=== PATIENT | female | born 1990 | race Hispanic/Latino ===

== ENCOUNTER 2021-12-29 09:36 | Inpatient (IN) | payer SELFPAY ==
[2021-12-29 10:20] LABS: #Basophils 0.1 thou/uL (0.0-0.2); #Eosinphils 0.2 thou/uL (0.0-0.7); #Lymphocytes 1.7 thou/uL (1.20-3.40); #Monocytes 1.2 thou/uL (0.11-0.59); #Neutrophils 15.3 thou/uL (1.40-6.50); %Basophils 0.4 % (0.0-1.0); %Eosinophils 1.2 % (0.0-10.0); %Lymphocytes 9.1 % (21.0-51.0); %Monocytes 6.3 % (0.0-10.0); %Neutrophils 82.9 % (42.0-75.0); Hemoglobin 14.2 g/dL (12.0-16.0); Mean Corpuscular Hemoglobin 30.6 pg (27.0-31.0); Mean Corpuscular Volume 92.7 fL (78.0-98.0); Mean Platelet Volume 7.3 fL (7.4-10.4); Platelet Count 352 thou/uL (130-400); Red Blood Cell (RBC) Count 4.64 mill/uL (4.20-5.40); White Blood Cell (WBC) Count 18.5 thou/uL (4.8-10.8)
[2021-12-29 10:36] LABS: INR-International Normal Ratio 1.1; Prothrombin Time 14.5 sec (12.0-14.7)
[2021-12-29 10:37] LABS: PTT 27.8 sec (22.9-36.1)
[2021-12-29 10:38] LABS: ALT (SGPT) 17 U/L (8-55); AST (SGOT) 23 U/L (5-34); Albumin 4.3 g/dL (3.5-5.0); Alkaline Phosphatase 80 U/L (40-110); Anion Gap 15 mmol/L (10-20); BUN (Urea Nitrogen) 6 mg/dL (7.0-18.7); Bilirubin, Total 0.6 mg/dL (0.2-1.2); Calc. Creatinine Clearance 0 mL/min (70-130); Calcium 9.2 mg/dL (7.8-10.44); Carbon Dioxide 21 mmol/L (22-29); Chloride 103 mmol/L (98-107); Glucose 124 mg/dL (70-105); Potassium 3.2 mmol/L (3.5-5.1); Protein, Total 8.3 g/dL (6.0-8.3); Sodium 136 mmol/L (136-145)
[2021-12-29] MEDS ORDERED: Cefepime 2 GM VIAL ONE (10:43)
[2021-12-29] MEDS ORDERED: Iopamidol 370 76% 100 ML VIAL ONE (10:44)
[2021-12-29] MEDS ORDERED: Cefepime 1 GM VIAL ONE (10:45)
[2021-12-29 10:59] LABS: BHCG - Serum Negative (NEGATIVE); Pregs Control Background? CLEAR/WHITE (CLR/WHITE); Pregs Control Bar Appear? YES (CONTROL BAR)
[2021-12-29] MEDS ORDERED: methylPREDNISolone Sod Succ/PF 125 MG/2 ML VIAL ONE (11:25)
[2021-12-29] MEDS ORDERED: Albuterol Sulfate 2.5 mg/0.5 ml Neb ONE (11:28)
[2021-12-29] MEDS ORDERED: Albuterol Sulfate 1.25 MG/3 ML NEB ONE (11:29)
[2021-12-29] MEDS ORDERED: Azithromycin 500 MG VIAL ONE (12:37)
[2021-12-29] MEDS ORDERED: Acetaminophen 500 MG TAB ONE (12:37)
[2021-12-29] MEDS ORDERED: Lorazepam 2 MG/ML VIAL ONE (13:17)
[2021-12-29] MEDS ORDERED: Ondansetron PF 4 MG/2 ML Vial IVP PRN (13:26)
[2021-12-29] MEDS ORDERED: Enoxaparin Sodium 40 MG/0.4 ML SYRINGE SC SCH (13:30)
[2021-12-29] MEDS ORDERED: Albuterol Sulfate 2.5 mg/3 ml Neb NEB PRN (13:33)
[2021-12-29] MEDS ORDERED: Potassium Chloride 20 MEQ TAB PO SCH (13:45)
[2021-12-29 13:51] LABS: SARS-CoV-2 NAA Rapid Test Not Detected (NotDetected)
[2021-12-29] MEDS ORDERED: cefTRIAXone\\ROCEPHIN 1 GM in Sodium Chloride 0.9% 100 ML IVPB SCH ×2 (14:00→20:00)
[2021-12-29 14:04] LABS: Magnesium 1.8 mg/dL (1.6-2.6)
[2021-12-29] MEDS ORDERED: FLU VACC QS2021-22(6MOS UP)/PF 60 MCG/0.5 ML SYRINGE IM ONE ×2 (17:00→23:00)
[2021-12-29] MEDS: methylPREDNISolone Sod Succ 40 MG VIAL IVP SCH (18:31)
[2021-12-29 19:53] LABS: Legionella Urinary Ag Negative (Negative); Strep pneumo Urine Ag NEGATIVE (NEGATIVE)
[2021-12-29] MEDS: Lactated Ringer's 1,000 ML IV SCH (20:59)
[2021-12-29 22:49] VITALS: BMI 21.4
[2021-12-30] MEDS: methylPREDNISolone Sod Succ 40 MG VIAL IVP SCH ×5 (00:01→23:58)
[2021-12-30] MEDS: Lactated Ringer's 1,000 ML IV SCH ×4 (05:55→22:00)
[2021-12-30 08:07] LABS: Band 24 % (5-11); Hemoglobin 12.3 g/dL (12.0-16.0); Lymphocytes 4 % (21-51); MDiff Complete? YES; Mean Corpuscular HGB CONC 32.6 g/dL (32.0-36.0); Mean Corpuscular Hemoglobin 30.6 pg (27.0-31.0); Mean Corpuscular Volume 93.7 fL (78.0-98.0); Mean Platelet Volume 7.5 fL (7.4-10.4); Monocytes 1 % (0-10); Neutrophil 70 % (42-75); Platelet Count 350 thou/uL (130-400); Platelet Morphology Comment Appears Adequate; Polychromasia SLIGHT = 2-3 cells (100X) (0-2/hpf); RBC Distribution Width 12.1 % (11.5-14.5); Reactive Lymphocytes 1 % (0-10); Red Blood Cell (RBC) Count 4.02 mill/uL (4.20-5.40); White Blood Cell (WBC) Count 28.8 thou/uL (4.8-10.8)
[2021-12-30] MEDS: Enoxaparin Sodium 40 MG/0.4 ML SYRINGE SC SCH (09:38)
[2021-12-30] MEDS: Azithromycin 500 MG in Sodium Chloride 0.9% 250 ML 250 ML IVPB SCH (12:52)
[2021-12-30] MEDS ORDERED: Piperacillin/Tazobactam 4.5 GM in Sodium Chloride 0.9% 100 ML IVPB SCH (15:00)
[2021-12-30] MEDS ORDERED: Potassium Chloride 20 MEQ TAB PO SCH (15:15)
[2021-12-30] MEDS ORDERED: Piperacillin/Tazobactam 3.375 GM in Sodium Chloride 0.9% 100 ML IVPB SCH (15:15)
[2021-12-30] MEDS: Piperacillin/Tazobactam 3.375 GM in Sodium Chloride 0.9% 100 ML IVPB SCH (21:35)
[2021-12-31 05:12] LABS: Band 6 % (5-11); Hemoglobin 12.7 g/dL (12.0-16.0); Lymphocytes 1 % (21-51); MDiff Complete? YES; Mean Corpuscular HGB CONC 31.9 g/dL (32.0-36.0); Mean Corpuscular Hemoglobin 30.2 pg (27.0-31.0); Mean Corpuscular Volume 94.5 fL (78.0-98.0); Mean Platelet Volume 7.6 fL (7.4-10.4); Monocytes 1 % (0-10); Neutrophil 92 % (42-75); Platelet Count 390 thou/uL (130-400); RBC Distribution Width 12.2 % (11.5-14.5); Red Blood Cell (RBC) Count 4.22 mill/uL (4.20-5.40); White Blood Cell (WBC) Count 30.6 thou/uL (4.8-10.8)
[2021-12-31] MEDS: Piperacillin/Tazobactam 3.375 GM in Sodium Chloride 0.9% 100 ML IVPB SCH (05:17)
[2021-12-31] MEDS: Lactated Ringer's 1,000 ML IV SCH (05:25)
[2021-12-31] MEDS: methylPREDNISolone Sod Succ 40 MG VIAL IVP SCH ×2 (06:24→12:48)
[2021-12-31] MEDS: Enoxaparin Sodium 40 MG/0.4 ML SYRINGE SC SCH (08:54)
[2021-12-31] MEDS ORDERED: Vancomycin 1 GM in Premix Bag 1 BAG IVPB SCH (11:01)
[2021-12-31] MEDS: Azithromycin 500 MG in Sodium Chloride 0.9% 250 ML 250 ML IVPB SCH (12:48)
[2021-12-31] MEDS ORDERED: Albuterol Sulfate 2.5 mg/3 ml Neb NEB SCH (13:00)
[2021-12-31] MEDS: Vancomycin HCl 500 MG in Sodium Chloride 0.9% 100 ML IVPB SCH (16:15)
[2021-12-31] MEDS: Cefepime 2 GM in Sodium Chloride 0.9% 100 ML IVPB SCH (18:43)
[2022-01-01] MEDS: Vancomycin HCl 500 MG in Sodium Chloride 0.9% 100 ML IVPB SCH (01:50)
[2022-01-01 04:51] LABS: #Eosinphils 0.1 thou/uL (0.0-0.7); #Lymphocytes 2.6 thou/uL (1.20-3.40); #Monocytes 1.1 thou/uL (0.11-0.59); #Neutrophils 15.5 thou/uL (1.40-6.50); %Basophils 0.1 % (0.0-1.0); %Eosinophils 0.4 % (0.0-10.0); %Lymphocytes 13.3 % (21.0-51.0); %Monocytes 5.5 % (0.0-10.0); %Neutrophils 80.7 % (42.0-75.0); Hemoglobin 12.2 g/dL (12.0-16.0); Mean Corpuscular Hemoglobin 30.8 pg (27.0-31.0); Mean Corpuscular Volume 93.2 fL (78.0-98.0); Mean Platelet Volume 7.5 fL (7.4-10.4); Platelet Count 348 thou/uL (130-400); RBC Distribution Width 12.1 % (11.5-14.5); Red Blood Cell (RBC) Count 3.96 mill/uL (4.20-5.40); White Blood Cell (WBC) Count 19.3 thou/uL (4.8-10.8)
[2022-01-01 05:08] LABS: Anion Gap 10 mmol/L (10-20); BUN (Urea Nitrogen) 7 mg/dL (7.0-18.7); Calc. Creatinine Clearance 75 mL/min (70-130); Calcium 8.5 mg/dL (7.8-10.44); Carbon Dioxide 26 mmol/L (22-29); Cardiac Risk 3.8 (Less than 4.5); Chloride 106 mmol/L (98-107); Cholesterol 148 mg/dl (< 200 Desired); Glucose 133 mg/dL (70-105); HDL Cholesterol 39 mg/dL (>60 Neg Risk); LDL Cholesterol, Calculated 93 mg/dL; Phosphorus 2.4 mg/dL (2.3-4.7); Sodium 139 mmol/L (136-145); Triglycerides 80 mg/dL (Less than 150)
[2022-01-01 05:12] LABS: Hemoglobin A1c 5.1 % (4.0-6.0)
[2022-01-01 05:18] LABS: Potassium 2.9 mmol/L (3.5-5.1)
[2022-01-01] MEDS: Cefepime 2 GM in Sodium Chloride 0.9% 100 ML IVPB SCH ×2 (06:17→20:26)
[2022-01-01] MEDS ORDERED: predniSONE 20 MG TAB PO SCH ×2 (08:00→11:15)
[2022-01-01] MEDS ORDERED: Electrolyte Replacement Protocol FS PRN (08:15)
[2022-01-01] MEDS: Enoxaparin Sodium 40 MG/0.4 ML SYRINGE SC SCH (10:58)
[2022-01-01] MEDS ORDERED: predniSONE 50 MG TAB ONE (11:01)
[2022-01-01] MEDS ORDERED: Magnesium 2 GM/50 ML 2 GM in Premix Bag 1 BAG IVPB SCH (12:00)
[2022-01-01 13:19] LABS: Vancomycin, Trough 3.2 ug/mL
[2022-01-01] MEDS: Azithromycin 500 MG in Sodium Chloride 0.9% 250 ML 250 ML IVPB SCH (13:59)
[2022-01-01] MEDS: Potassium Chloride 20 MEQ TAB PO SCH ×2 (14:35→16:52)
[2022-01-01] MEDS: Vancomycin 1 GM in Premix Bag 1 BAG IVPB SCH (16:51)
[2022-01-02] MEDS: Vancomycin 1 GM in Premix Bag 1 BAG IVPB SCH ×2 (02:35→14:45)
[2022-01-02] MEDS ORDERED: diphenhydrAMINE 50 MG CAP PO PRN (03:29)
[2022-01-02 05:06] LABS: #Eosinphils 0.1 thou/uL (0.0-0.7); #Lymphocytes 2.1 thou/uL (1.20-3.40); #Monocytes 0.9 thou/uL (0.11-0.59); #Neutrophils 11.5 thou/uL (1.40-6.50); %Basophils 0.2 % (0.0-1.0); %Eosinophils 0.7 % (0.0-10.0); %Lymphocytes 14.5 % (21.0-51.0); %Monocytes 6.1 % (0.0-10.0); %Neutrophils 78.5 % (42.0-75.0); Hemoglobin 12.6 g/dL (12.0-16.0); Mean Corpuscular HGB CONC 33.6 g/dL (32.0-36.0); Mean Corpuscular Hemoglobin 30.8 pg (27.0-31.0); Mean Corpuscular Volume 91.7 fL (78.0-98.0); Mean Platelet Volume 7.4 fL (7.4-10.4); Platelet Count 378 thou/uL (130-400); Red Blood Cell (RBC) Count 4.09 mill/uL (4.20-5.40); White Blood Cell (WBC) Count 14.7 thou/uL (4.8-10.8)
[2022-01-02] MEDS: Cefepime 2 GM in Sodium Chloride 0.9% 100 ML IVPB SCH (05:34)
[2022-01-02 06:09] LABS: HIV (1/2) Antibody/Antigen Non-Reactive (NonReactive); HIV 1/2 INDEX 0.07 S/CO (<1.00)
[2022-01-02 06:39] LABS: Free T4 (Free Thyroxine) 0.94 ng/dL (0.70-1.48)
[2022-01-02 07:35] LABS: Anion Gap 13 mmol/L (10-20); BUN (Urea Nitrogen) 9 mg/dL (7.0-18.7); Calc. Creatinine Clearance 77 mL/min (70-130); Carbon Dioxide 22 mmol/L (22-29); Chloride 104 mmol/L (98-107); Glucose 86 mg/dL (70-105); Magnesium 2.2 mg/dL (1.6-2.6); Phosphorus 2.9 mg/dL (2.3-4.7); Potassium 3.8 mmol/L (3.5-5.1); Sodium 135 mmol/L (136-145)
[2022-01-02] MEDS: Enoxaparin Sodium 30 MG/0.3 ML SYRINGE SC SCH (09:12)
[2022-01-02] MEDS ORDERED: Sodium Bicarbonate 2.5 MEQ/5 ML VIAL ONE (09:21)
[2022-01-02] MEDS ORDERED: Fentanyl 100 MCG/2 ML VIAL ONE (09:21)
[2022-01-02] MEDS ORDERED: Sodium Chloride 0.9% 0 ML ONE (09:21)
[2022-01-02] MEDS ORDERED: Midazolam HCl 2 mg/2 ml Vial ONE (09:21)
[2022-01-02] MEDS: Azithromycin 500 MG in Sodium Chloride 0.9% 250 ML 250 ML IVPB SCH (12:33)
[2022-01-02] MEDS ORDERED: diphenhydrAMINE 25 MG CAP PO PRN (15:57)
[2022-01-02] MEDS: cefTRIAXone\\ROCEPHIN 1 GM in Sodium Chloride 0.9% 100 ML IVPB SCH (18:27)
[2022-01-03 01:29] LABS: Vancomycin, Trough 8.9 ug/mL
[2022-01-03 04:55] LABS: #Eosinphils 1.2 thou/uL (0.0-0.7); #Lymphocytes 3.1 thou/uL (1.20-3.40); #Monocytes 0.8 thou/uL (0.11-0.59); #Neutrophils 5.5 thou/uL (1.40-6.50); %Basophils 0.1 % (0.0-1.0); %Eosinophils 11.7 % (0.0-10.0); %Lymphocytes 28.9 % (21.0-51.0); %Monocytes 7.2 % (0.0-10.0); %Neutrophils 52.1 % (42.0-75.0); Hemoglobin 13.4 g/dL (12.0-16.0); Mean Corpuscular HGB CONC 32.9 g/dL (32.0-36.0); Mean Corpuscular Hemoglobin 30.6 pg (27.0-31.0); Mean Corpuscular Volume 92.8 fL (78.0-98.0); Mean Platelet Volume 7.3 fL (7.4-10.4); Platelet Count 350 thou/uL (130-400); RBC Distribution Width 12.2 % (11.5-14.5); Red Blood Cell (RBC) Count 4.39 mill/uL (4.20-5.40); White Blood Cell (WBC) Count 10.6 thou/uL (4.8-10.8)
[2022-01-03 05:30] LABS: Anion Gap 6 mmol/L (10-20); BUN (Urea Nitrogen) 15 mg/dL (7.0-18.7); Calc. Creatinine Clearance 68 mL/min (70-130); Calcium 8.5 mg/dL (7.8-10.44); Carbon Dioxide 27 mmol/L (22-29); Chloride 107 mmol/L (98-107); Glucose 82 mg/dL (70-105); Magnesium 2.1 mg/dL (1.6-2.6); Phosphorus 4.2 mg/dL (2.3-4.7); Sodium 136 mmol/L (136-145)
[2022-01-03] MEDS: Enoxaparin Sodium 30 MG/0.3 ML SYRINGE SC SCH (08:47)
[2022-01-03] MEDS: Azithromycin 500 MG in Sodium Chloride 0.9% 250 ML 250 ML IVPB SCH (13:13)
[2022-01-03] MEDS: cefTRIAXone\\ROCEPHIN 1 GM in Sodium Chloride 0.9% 100 ML IVPB SCH (16:51)
[2022-01-03] MEDS: Acetaminophen 325 MG TAB PO PRN (17:59)
[2022-01-04] MEDS: Acetaminophen 325 MG TAB PO PRN (05:51)
[2022-01-04 06:02] LABS: #Eosinphils 1.6 thou/uL (0.0-0.7); #Lymphocytes 2.2 thou/uL (1.20-3.40); #Monocytes 0.8 thou/uL (0.11-0.59); #Neutrophils 8.1 thou/uL (1.40-6.50); %Basophils 0.2 % (0.0-1.0); %Eosinophils 12.4 % (0.0-10.0); %Lymphocytes 17.3 % (21.0-51.0); %Neutrophils 64.1 % (42.0-75.0); Hemoglobin 13.3 g/dL (12.0-16.0); Mean Corpuscular HGB CONC 32.5 g/dL (32.0-36.0); Mean Corpuscular Hemoglobin 29.6 pg (27.0-31.0); Mean Corpuscular Volume 91.2 fL (78.0-98.0); Mean Platelet Volume 7.1 fL (7.4-10.4); Platelet Count 362 thou/uL (130-400); RBC Distribution Width 12.1 % (11.5-14.5); Red Blood Cell (RBC) Count 4.48 mill/uL (4.20-5.40); White Blood Cell (WBC) Count 12.6 thou/uL (4.8-10.8)
[2022-01-04 06:14] LABS: Anion Gap 10 mmol/L (10-20); BUN (Urea Nitrogen) 16 mg/dL (7.0-18.7); Calc. Creatinine Clearance 70 mL/min (70-130); Calcium 8.5 mg/dL (7.8-10.44); Carbon Dioxide 25 mmol/L (22-29); Chloride 106 mmol/L (98-107); Glucose 80 mg/dL (70-105); Magnesium 2.3 mg/dL (1.6-2.6); Phosphorus 3.4 mg/dL (2.3-4.7); Potassium 3.7 mmol/L (3.5-5.1); Sodium 137 mmol/L (136-145)
[2022-01-04] MEDS: Enoxaparin Sodium 30 MG/0.3 ML SYRINGE SC SCH (08:22)
[2022-01-04 08:56] VITALS: BP 100/69; TEMP 97.4
[2022-01-04] MEDS: Azithromycin 500 MG in Sodium Chloride 0.9% 250 ML 250 ML IVPB SCH (11:44)
[2022-01-04 13:40] LABS: QuantiFERON-TB Gold Plus Negative (Negative)
[2022-01-04] MEDS: cefTRIAXone\\ROCEPHIN 1 GM in Sodium Chloride 0.9% 100 ML IVPB SCH (16:07)
[2022-01-05 17:14] LABS: Coccidioides ABS (DID) Negative (Neg:<1:2)
== END 2022-01-04 16:33 | disposition home or self-care (01) | DRG 871 ==
LOC: ERS 09:36 → 2NO 12:49 → T4-B 01-03 15:38
PROVIDERS: ADMIT Hospitalist; ATTEND Family Medicine
DX: A41.9 Sepsis, unspecified organism (principal); J18.9 Pneumonia, unspecified organism; J96.01 Acute respiratory failure with hypoxia; E87.6 Hypokalemia; Z20.822 Contact with and (suspected) exposure to COVID-19; J98.2 Interstitial emphysema; R51.9 Headache, unspecified; Z98.2 Presence of cerebrospinal fluid drainage device; Z98.890 Other specified postprocedural states
CPT/HCPCS: 36415; 36416; 70450; 71045; 71275; 80048; 80053; 80061; 80202; 83036; 83605; 83735; 83880; 84100; 84145; 84439; 84443; 84703; 85007; 85025; 85027; 85610; 85730; 86480; 86635; 87040; 87070; 87077; 87081; 87149; 87186; 87205; 87389; 87449; 87804; 87899; 90471; 90686; 93005; 93306; 94640; 94760; 96365; 96366; 96368; 96375; G0008; J0456; J0692; J0696; J1650; J2060; J2250; J2405; J2543; J2920; J2930; J3010; J3370; J3475; J3490; J7050; J7120; J7512; J7611; J7620; Q9967; U0002

== ENCOUNTER 2024-12-10 19:11 | Emergency (ER) | payer SELFPAY ==
[2024-12-10 21:10] LABS: Bilirubin Negative (Negative); Blood, Urine 1+ (Negative); CAUTI Indications for Culture Alt mental st,lethar; Clarity Clear (Clear); Glucose, Urine (Dipstick) Normal (Negative); Ketone, Urine Negative (Negative); Leukocyte 500 Leu/uL (Negative); Nitrite Negative (Negative); Protein, Urine (Dipstick) Negative (Neg-Trace); RBC/HPF 0-3 HPF (0-3); Specific Gravity, Urine 1.004 (1.002-1.036); Squamous Epithelial 0-3 HPF (0-3); Urobilinogen Normal mg/dL (Less than 2)
[2024-12-10 21:11] LABS: Bacteria/HPF Rare-Few HPF (None Seen); Urine Culture Reflex Yes Yes
[2024-12-10] MEDS ORDERED: Bacitracin 1 PK ONE (21:15)
[2024-12-10] MEDS ORDERED: Lidocaine 1% PF 5 ML VIAL ONE (21:15)
[2024-12-10] MEDS ORDERED: Ketorolac Tromethamine 30 MG (1 mL) VIAL ONE (21:15)
[2024-12-10] MEDS ORDERED: Lidocaine 1% (PF) 30 ML VIAL ONE (21:31)
== END 2024-12-10 22:06 | disposition home or self-care (01) ==
LOC: ERS 19:11
DX: S01.21XA Laceration without foreign body of nose, initial encounter (principal); W18.30XA Fall on same level, unspecified, initial encounter
CPT/HCPCS: 70150; 81001; 87086; 93005; J1885